=== PATIENT | female | born 1975 | race Two or more races ===

== ENCOUNTER 2022-07-31 07:23 | Emergency (ER) | payer OTHER, SELFPAY ==
[2022-07-31] VITALS (18 sets, daily range): BP systolic 90–156; BP diastolic 53–89; PULSE 52–104; RESP 12–24; O2SAT 97–100
--- NOTE | ~2022-07-31 | XR_ITS ---
XR chest 1V portable DATE: 07/31/2022 08:13 INDICATION: Left-sided chest pain starting one hour ago TECHNIQUE: Portable AP chest on 07/31/2022 and 0011 hours COMPARISON: June 19, 2015 PA chest FINDINGS: Normal heart size. No hilar or mediastinal enlargement. No pulmonary infiltrate or consolid ation, pleural effusion or pulmonary vascular congestion or pneumothorax is detected. Included skelet al structures are unremarkable. IMPRESSION: Negative Reviewed, dictated and finalized at location B. IMPRESSION: Negative
--- NOTE | 2022-07-31 07:28 | ECG_ITS ---
Measurements Intervals [place] Rate: P: [place]: QRS: QRSD: T: QT: QTc: Interpretive Statements SINUS RHYTHM WITH SINUS ARRHYTHMIA BORDERLINE ST ABNORMALITY- INFERIOR LEADS BASELINE ARTIFACT- II, III BORDERLINE ECG NO PRIOR ECG FOR COMPARISON Electronically Signed On 07-31-2022 13:10:20 CDT by Trenton Muñoz D.O.
[2022-07-31 07:42] LABS: Basophils Absolute Auto 0.1 K/mm3 (0.0-0.1); Basophils Percent Auto 1.2 % (0.2-1.2); Eosinophils Absolute Auto 0.4 K/mm3 (0-0.3); Eosinophils Percent Auto 4.4 % (0-4.4); Hematocrit 41.2 % (37.0-47.0); Immature Granulocyte Absolute 0.03 K/mm3 (0.00-0.031); Immature Granulocyte Percent A 0.4 % (0-0.5); Lymphocytes Absolute Auto 2.16 K/mm3 (0.9-3.2); Lymphocytes Percent Auto 26.4 % (18.3-44.2); Mean Corpuscular Hemoglobin 31.5 pg (26-34); Mean Corpuscular Volume 92.8 fl (80-100); Mean Platelet Volume 10.1 fl (7.4-10.4); Monocytes Absolute Auto 0.7 K/mm3 (0.1-0.6); Monocytes Percent Auto 8.8 % (2.6-8.5); Neutrophils Absolute Auto 4.8 K/mm3 (1.3-6.7); Neutrophils Percent Auto 58.8 % (45.5-73.1); Platelet Count Result 331 k/mm3 (150-375); Red Blood Count 4.44 M/mm3 (4.2-5.4); Red Cell Distribution Width 12.3 % (11.5-14.5); White Blood Count 8.2 K/mm3 (4.5-10.0)
[2022-07-31] MEDS: ASPIRIN 81 MG CHEWABLE TABLET 324 MG PO (07:42)
[2022-07-31] MEDS: NITROGLYCERIN SL 0.4 MG TABLET SUBLINGUAL (07:50)
[2022-07-31 07:58] LABS: INR 1.1; Partial Thromboplastin Time 28.2 SECONDS (22.3-36.8); Prothrombin Time 13.3 Seconds (11.1-14.7)
[2022-07-31 07:59] LABS: Alanine Aminotransferase 25 U/L (6-35); Albumin Level 4.8 g/dL (3.5-5.1); Alkaline Phosphatase 59 U/L (38-126); Anion Gap 9 mmol/L (8-16); Aspartate Amino Transferase 32 U/L (14-36); Bilirubin,Total 0.8 mg/dL (0.2-1.3); Blood Urea Nitrogen 15 mg/dL (7-17); Calcium 9.1 mg/dL (8.4-10.2); Carbon Dioxide 25 mmol/L (22-30); Chloride 102 mmol/L (98-107); Estimated CRCL calculation 58 ml/min; Estimated Glomerular Filt Rate > 60; Glucose 98 mg/dL (65-110); Lipase 138 U/L (23-300); Potassium 3.7 mmol/L (3.4-5.0); Sodium 136 mmol/L (137-145)
[2022-07-31] MEDS: LORazepam INJ (*CRX) 2 MG/ML VIAL 0.5 MG IV PUSH (08:04)
[2022-07-31 08:09] LABS: Troponin I < 0.012 ng/mL (0.000-0.034)
[2022-07-31] MEDS: BELLADONNA ALK/PHENOB ELIX 10 ML, MAG HYDROX/ALUMINUM HYD/SIMETH 30 ML, LIDOCAINE HCL 2... PO (08:15)
--- NOTE | 2022-07-31 09:55 | ED.CHESTPAIN ---
HPI - Chest Pain General Chief Complaint: Chest Pain Stated Complaint: chest pain Time Seen by Provider: 07/31/22 07:24 History of Present Illness HPI narrative: Patient is a 46-year-old female who presents ER with sudden onset chest pain beginning right before coming to the ER. 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 She then developed burning aching central chest pain. No radiation to jaw or shoulder or down the arm. Patient became very distressed due to this. It waxes and wanes in intensity. It is currently 4/10. No history of heart disease in her or family member. No abdominal discomfort or dyspepsia. Related Data Allergies Allergy/AdvReac Type Severity Reaction Status Date / Time Sulfa (Sulfonamide Allergy Rash Verified 07/31/22 07:38 Antibiotics) promethazine [From Phenergan] AdvReac Nausea Verified 07/31/22 07:38 Review of Systems Review of Systems: All systems reviewed & are unremarkable except as noted in HPI and below Constitutional: Constitutional: Denies chills, Denies fatigue and Denies fever(s) ENT: Denies nasal congestion and Denies sore throat Cardiovascular: Cardiovascular: Reports chest pain, Denies rapid heart rate and Denies radiating jaw, neck or arm pain Respiratory: Respiratory: Denies cough, Denies dyspnea and Denies wheezing Gastrointestinal: Gastrointestinal: Denies abdominal pain, Denies nausea and Denies vomiting Neurologic: Reports dizziness, Denies focal weakness and Denies numbness PMFSH Past Medical History Medical History (Updated 07/31/22 @ 11:40 by Tree Joseph MD) Healthy female adult Surgical History Surgical History (Updated 07/31/22 @ 09:57 by Tree Joseph MD) No history of previous surgery Exam Narrative: GENERAL: Anxious-appearing, well-nourished, and in no acute distress. HEAD: Normocephalic, atraumatic. EYES: PERRL and EOMI. ENT: Mucous membranes moist. CHEST: Clear to auscultation. No respiratory distress. HEART: Regular rate and rhythm. Normal peripheral pulses. ABDOMEN: Soft, nontender, nondistended. EXTREMITIES: Normal range of motion. No edema. SKIN: Warm, dry, no rash. NEURO: Alert and oriented x3. PSYCH: Normal mood and affect. Course Course Emergency Course: Troponin negative x2. Patient chest pain-free. She did receive some Ativan and GI cocktail earlier as well as nitroglycerin which had no effect on her discomfort at the time. Patient be discharged home. Heart score is 3. Patient appropriate for follow-up with PCP. Vital Signs Vital signs: Vital Signs Pulse Rate 71 07/31/22 07:29 Respiratory Rate 13 07/31/22 07:29 Blood Pressure 156/53 H 07/31/22 07:29 Pulse Oximetry 100 07/31/22 07:29 Oxygen Delivery Room Air 07/31/22 07:29 Pulse Rate 55 L 07/31/22 11:18 Respiratory Rate 19 07/31/22 11:18 Blood Pressure 112/76 07/31/22 11:18 Pulse Oximetry 99 07/31/22 11:18 Oxygen Delivery Room Air 07/31/22 07:36 MDM - Chest Pain Lab Data 07/31/22 07:31 07/31/22 07:31 Labs: Lab Results 07/31/22 07/31/22 07/31/22 Range/Units 07:31 07:31 07:31 WBC 8.2 (4.5-10.0) K/mm3 RBC 4.44 (4.2-5.4) M/mm3 Hgb 14.0 (12.0-15.0) g/dL Hct 41.2 (37.0-47.0) % MCV 92.8 (80-100) fl MCH 31.5 (26-34) pg MCHC 34.0 (32-36) g/dl RDW 12.3 (11.5-14.5) % Plt Count 331 (150-375) k/mm3 MPV 10.1 (7.4-10.4) fl Immature Gran % (Auto) 0.4 (0-0.5) % Neut % (Auto) 58.8 (45.5-73.1) % Lymph % (Auto) 26.4 (18.3-44.2) % Hinds % (Auto) 8.8 H (2.6-8.5) % Eos % (Auto) 4.4 (0-4.4) % Baso % (Auto) 1.2 (0.2-1.2) % Lymph # (Auto) 2.16 (0.9-3.2) K/mm3 Hinds # (Auto) 0.7 H (0.1-0.6) K/mm3 Eos # (Auto) 0.4 H (0-0.3) K/mm3 Baso # (Auto) 0.1 (0.0-0.1) K/mm3 Abs Immat Gran (auto) 0.03 (0.00-0.031) K/mm3 Abso
[2022-07-31 11:11] LABS: Troponin I < 0.012 ng/mL (0.000-0.034)
== END 2022-07-31 12:01 | disposition home or self-care (01) ==
PROVIDERS: Emergency Provider Emergency Medicine
DX: R07.9 Chest pain, unspecified (principal)
CPT/HCPCS: 36415; 71045; 80053; 83690; 84484; 85025; 85610; 85730; 93005; 96374; 99284; A9270; J2060